=== PATIENT | female | born 1990 | race Caucasian/White ===

== ENCOUNTER 2017-08-15 19:49 | Emergency (ER) | payer OTHER ==
[2017-08-15] MEDS ORDERED: Ampicillin/Sulbactam 3 GM in Sodium Chloride 0.9% 100 ML IVPB ONE (20:30)
[2017-08-15] MEDS ORDERED: Adacel (T-DAP) 0.5 ML VIAL ONE (20:37)
--- NOTE | 2017-08-15 21:45 | RAD ---
RIGHT HAND THREE VIEWS: 08/15/17 HISTORY: 27-year-old female with history of cat bite on wrist and hand with some progressive redness. There does appear to be skin defect on the palmar aspect of the hand seen on the lateral view. No jayden dence of fracture or dislocation. No bony, erosive or destructive changes. IMPRESSION: Small focal area of soft tissue abnormality involving the palmar aspect of the hand. Correlate with k nown bite. No osseous abnormality. POS: [facility]
== END 2017-08-15 21:26 | disposition home or self-care (01) ==
LOC: ERS 19:49
DX: S61.551A Open bite of right wrist, initial encounter (principal); S61.531A Puncture wound without foreign body of right wrist, initial encounter; L03.113 Cellulitis of right upper limb; F32.9 Major depressive disorder, single episode, unspecified; F17.200 Nicotine dependence, unspecified, uncomplicated; Z79.899 Other long term (current) drug therapy; W55.01XA Bitten by cat, initial encounter
CPT/HCPCS: 90471; 90715; 96365; 96375; J0295; J7050

== ENCOUNTER 2017-09-29 11:33 | Outpatient (CLI) | payer BC | END 2017-09-29 11:34 | disposition home or self-care (01) | LOC: BICRAD 11:33 | PROVIDERS: ATTEND Internal Medicine Rheumatology | DX: M46.1 Sacroiliitis, not elsewhere classified (principal) | CPT/HCPCS: 72202 ==

== ENCOUNTER 2018-05-18 09:24 | Outpatient (CLI) | payer BC ==
--- NOTE | 2018-05-18 10:03 | RAD ---
CHEST PA AND LATERAL: Date: 05/18/18 HISTORY: 27-year-old female with history of chest pain. Ankylosing spondylitis. FINDINGS/IMPRESSION: Heart size is within normal limits. Lungs are clear. No pneumonia, edema, pleural effusion, or other acute process. POS: [facility]
--- NOTE | 2018-05-18 10:05 | RAD ---
LEFT HIP 2 VIEWS: Date: 05/18/18 HISTORY: 27-year-old female with history of left hip pain. FINDINGS: No fracture, dislocation, or other significant acute osseous abnormality. IMPRESSION: No acute process. POS: [facility]
--- NOTE | 2018-05-18 10:06 | RAD ---
RIGHT HIP 2 VIEWS: Date: 05/18/18 HISTORY: 27-year-old female with history of right hip pain. FINDINGS: No fracture, dislocation, or other acute process. Mild degenerative changes. IMPRESSION: Mild degenerative changes without fracture or dislocation. POS: [facility]
--- NOTE | 2018-05-18 10:08 | RAD ---
2 VIEWS LUMBAR SPINE: Date: 05/18/18 HISTORY: Low back pain. COMPARISON: 01/26/17. FINDINGS: Provided images are obtained with weightbearing. As noted on the prior exam, there is mild right conv ex curvature of the thoracolumbar spine. There are six non-rib bearing lumbar-type vertebral bodies. Minimal osteophytes are seen at the L2-3 level, utilizing this numbering system, and this is stable w hen compared to the prior exam. Vertebral body heights are within normal limits and there is no fract ure or subluxation appreciated. There has been no interval change from the prior exam. IMPRESSION: Stable views of the lumbar spine without a fracture or subluxation visualized. There is right convex curvature of the thoracolumbar spine. POS: [facility]
== END 2018-05-18 09:25 | disposition home or self-care (01) ==
LOC: BICRAD 09:24
PROVIDERS: ATTEND Family Medicine
DX: R07.9 Chest pain, unspecified (principal); M54.5 Low back pain; M43.9 Deforming dorsopathy, unspecified; M16.11 Unilateral primary osteoarthritis, right hip
CPT/HCPCS: 36415; 71046; 72100; 80053; 81001; 82306; 84443; 85025; 87086

== ENCOUNTER 2019-01-29 09:27 | Outpatient (CLI) | payer BC ==
--- NOTE | 2019-01-29 11:05 | RAD ---
CHEST TWO VIEWS: INDICATIONS: Cough. COMPARISON: 05/28/2018 FINDINGS: The lung hirsch are clear. The heart and mediastinum appear normal. Vascular markings are normal. Osseous structures are unremarkable. IMPRESSION: Unremarkable chest. POS: [facility]
== END 2019-01-29 09:28 | disposition home or self-care (01) ==
LOC: BICRAD 09:27
PROVIDERS: ATTEND Family Medicine
DX: R05 Cough (principal)
CPT/HCPCS: 71046

== ENCOUNTER 2021-11-09 09:24 | Emergency (ER) | payer BC, OTHER ==
[2021-11-09] MEDS ORDERED: Ampicillin/Sulbactam 3 GM VIAL IM SCH (12:30)
[2021-11-09] MEDS ORDERED: Sterile Water 10 ML ONE (12:53)
[2021-11-09] MEDS ORDERED: Bacitracin 1 PK ONE (12:53)
[2021-11-09] MEDS ORDERED: Acetaminophen 500 MG TAB ONE (13:08)
[2021-11-09] MEDS ORDERED: diphenhydrAMINE 25 MG CAP ONE (13:15)
[2021-11-09] MEDS ORDERED: Lidocaine 4% Cream 5 GM TUBE w/ Tegaderm ONE (13:15)
== END 2021-11-09 13:35 | disposition home or self-care (01) ==
LOC: ERS 09:24
DX: S61.032A Puncture wound without foreign body of left thumb without damage to nail, initial encounter (principal); E03.9 Hypothyroidism, unspecified; E55.9 Vitamin D deficiency, unspecified; M45.9 Ankylosing spondylitis of unspecified sites in spine; W55.01XA Bitten by cat, initial encounter; Z79.84 Long term (current) use of oral hypoglycemic drugs; Z79.899 Other long term (current) drug therapy
CPT/HCPCS: 96372; 99283; J0295